=== PATIENT | male | born 1955 | race Caucasian/White ===

== ENCOUNTER → 2023-05-23 14:04 | Outpatient (BNVA) | payer MEDICARE, SELFPAY | PROVIDERS: Visit Provider Family Medicine | DX: Z13.6 Encounter for screening for cardiovascular disorders (principal); R35.1 Nocturia; Z23 Encounter for immunization | CPT/HCPCS: 80053; 80061; 82607; 84153; 85025 ==

== ENCOUNTER → 2023-05-26 10:16 | Outpatient (BNVA) | payer MEDICARE, SELFPAY | PROVIDERS: Visit Provider Family Medicine | DX: R79.89 Other specified abnormal findings of blood chemistry (principal); D53.9 Nutritional anemia, unspecified | CPT/HCPCS: 80074; 82746 ==

== ENCOUNTER 2023-06-29 10:12 | Outpatient (CLI) | payer MEDICARE, SELFPAY ==
--- NOTE | 2023-06-29 10:30 | US_ITS ---
WS: [id number] RIGHT UPPER QUADRANT ULTRASOUND HISTORY: Elevated LFT COMPARISON: None available. Liver: 17.7 cm in length. Liver top normal size. No mass or bile duct dilatation. Portal Vein: Normal hepatopetal flow with monophasic waveform. Gallbladder: Single stone identified in the gallbladder. No pericholecystic fluid or gallbladder wall thickening. Gallbladder wall is measuring top normal size but no pericholecystic fluid. CBD: 0.8 cm, mildly prominent. Pancreas: Normal size and echogenicity. Right kidney: 11.3 cm in length. Normal size and echogenicity. No hydronephrosis or mass. Aorta and IVC: Unremarkable abdominal aorta and IVC. No ascites. IMPRESSION: 1. Cholelithiasis without evidence for acute cholecystitis. 2. Common bile duct is measuring top normal to just greater than normal size. For further evaluation consider MRCP.
== END 2023-06-29 10:13 | disposition home or self-care (01) ==
LOC: RAD 10:14
PROVIDERS: Visit Provider Family Medicine
DX: R79.89 Other specified abnormal findings of blood chemistry (principal)
CPT/HCPCS: 76705